=== PATIENT | male | born 1970 | race American Indian/Alaskan Native ===

== ENCOUNTER 2017-07-26 14:59 | Inpatient (IN) | payer MEDICAID, OTHER ==
[2017-07-26 16:21] LABS: BASO # 0.1 K/uL (0.0-0.2); BASO % 0.9 % (0.0-2.0); EOS # 0.1 K/uL (0.0-0.7); EOS % 1.2 % (0.0-4.0); HEMATOCRIT 41.4 % (35.0-51.0); LYMPH % 27.8 % (20.0-40.0); MEAN CELL VOLUME 90.9 fL (80.0-94.0); MEAN CORPUSCULAR HEMOGLOBIN 30.3 pg (27.0-31.0); MEAN CORPUSCULAR HGB CONC 33.3 g/dL (33.0-37.0); MEAN PLATELET VOLUME 7.7 fL (7.2-11.7); MONO # 0.5 K/uL (0.0-0.8); NRBC % 0.2 % (0.0-2.0); RED CELL DISTRIBUTION WIDTH 13.3 % (11.5-14.5)
[2017-07-26 16:34] LABS: ALB/GLOB RATIO 1.1 (1.0-2.1); ALCOHOL SERUM < 10 mg/dl (0-10); ALKALINE PHOSPHATASE 77 U/L (38-126); ALT/SGPT 31 U/L (21-72); AST/SGOT 25 U/L (17-59); BILIRUBIN,TOTAL 0.5 mg/dL (0.2-1.3); BLOOD UREA NITROGEN 11 mg/dL (9-20); CALCIUM 8.5 mg/dl (8.6-10.4); CARBON DIOXIDE 25 mmol/L (22-30); CHLORIDE 100 mmol/L (98-107); GFR AFRICAN-AMERICAN > 60; GLUCOSE,RANDOM 138 mg/dL (75-110); SODIUM 133 mmol/L (132-148); TOTAL PROTEIN 7.7 g/dL (6.3-8.3)
[2017-07-26 16:38] LABS: URINE BILIRUBIN NEGATIVE (NEGATIVE); URINE BLOOD NEGATIVE (NEGATIVE); URINE CALCIUM OXALATE CRYSTALS FEW /hpf (<OCC); URINE COLOR Amber (YELLOW); URINE GLUCOSE (UA) NORMAL (Normal); URINE KETONE NEGATIVE (NEGATIVE); URINE LEUKOCYTE ESTERASE TRACE Leu/uL (Negative); URINE PROTEIN 1+ mg/dL (NEGATIVE); WBC URINE 7 /hpf (0-5)
--- NOTE | 2017-07-26 16:56 | C.PDOC ---
History Of Present Illness 47-year-old male, presents to the emergency department requesting detox from Heroin. Patients last use was today, states he used seven bags. Denies any other complaints at this time. Time Seen by Provider: 07/26/17 15:27 Chief Complaint (Nursing): Substance Abuse History Per: Patient History/Exam Limitations: no limitations Current Symptoms Are (Timing): Still Present Past Medical History Reviewed: Historical Data, Nursing Documentation, Vital Signs Vital Signs: Last Vital Signs Temp 98.8 F 07/26/17 15:06 Pulse 67 07/26/17 15:06 Resp 20 07/26/17 15:06 BP 128/76 07/26/17 15:06 Pulse Ox 94 L 07/26/17 16:58 Family History: States: No Known Family Hx - Social History Hx Alcohol Use: Yes Hx Substance Use: Yes - Immunization History Hx Tetanus Toxoid Vaccination: No Hx Influenza Vaccination: No Hx Pneumococcal Vaccination: No Review Of Systems Except As Marked, All Systems Reviewed And Found Negative. Constitutional: Negative for: Fever Cardiovascular: Negative for: Chest Pain Respiratory: Negative for: Shortness of Breath Gastrointestinal: Negative for: Vomiting, Abdominal Pain Musculoskeletal: Negative for: Back Pain Neurological: Negative for: Weakness, Numbness, Headache, Dizziness Physical Exam - Physical Exam Appears: Non-toxic, No Acute Distress Skin: Warm, Dry, No Rash Head: Atraumatic, Normacephalic Eye(s): bilateral: Normal Inspection, PERRL Nose: Normal Oral Mucosa: Moist Lips: Normal Appearing Neck: Normal ROM, Supple Chest: Symmetrical, No Tenderness Cardiovascular: Rhythm Regular, No Friction Rub, No Murmur Respiratory: Normal Breath Sounds, No Accessory Muscle Use Gastrointestinal/Abdominal: Soft, No Tenderness Extremity: Normal ROM Neurological/Psych: Oriented x3, Normal Speech, Normal Motor ED Course And Treatment - Laboratory Results Result Diagrams: 07/26/17 16:17 07/26/17 16:17 O2 Sat by Pulse Oximetry: 94 Progress Note: Bloodwork and UA ordered/reviewed. Medical Decision Making Medical Decision Making: The patient is medically cleared for psych admission. Case was accepted by Dr. Sultana (psychiatrist oncall) Disposition - Disposition Disposition: HOSPITALIZED Disposition Time: 17:33 Condition: FAIR Forms: [facility] (Maltese) - POA Present On Arrival: None - Clinical Impression Clinical Impression: Opiate dependence - Scribe Statement The provider has reviewed the documentation as recorded by the Scribe (Tarun Bautista) All medical record entries made by the Scribe were at my direction and personally dictated by me. I have reviewed the chart and agree that the record accurately reflects my personal performance of the history, physical exam, medical decision making, and the department course for this patient. I have also personally directed, reviewed, and agree with the discharge instructions and disposition.
--- NOTE | 2017-07-26 19:00 | PCM.BM ---
Treatment Plan Problems - Problems identified on initial assessmt Potential for opiate withdrawal Date Initiated: 07/26/17 Time Initiated: 18:59 Assessment reference: NA Status: Active Priority: 1 Treatment assets and liabiliti Patient Assests: cooperative, ADL independent, negotiates basic needs, cognitively intact Patient Liabilities: substance abuse (opiates) - Milieu Protocol Maintain good personal hygiene: daily Encourage regular showers, daily Remind patient to perform daily oral care, daily Assist patient to perform ADL's Conduct patient checks and document Observation sheet: Q15 minutes Maintain personal safety: every shift Educate patient to report safety concerns to staff, every shift Monitor environment for contraband/sharps Medication safety: Monitor for expected outcome, potential side effects: every shift, Assess barriers to learning: every shift, Assess readiness for medication education: every shift
[2017-07-27 06:34] VITALS: RESP 18
--- NOTE | 2017-07-27 16:11 | PCM.PSYCH ---
Initial Psychiatric Evaluation - Initial Psychiatric Evaluation Type of Admission: Voluntary Legal Status: Capacity Chief Complaint (in patient's own words): I need treatment for heroin withdrawal symptoms History of Present Illness and Precipitating Events: This is a 47-year old male who was admitted to the hospital for opioid detox. Patient stated he started using heroin the age of 18. This is his first detox admission. He stated he is snorting 34-25 bags on the daily basis. He reported when he is not able to get heroin he had a withdrawal symptoms including nausea vomiting stomach cramps, headaches, nasal and eye conditions, hot and cold flashes, body aches. Currently patient reported the withdrawal symptoms of opioids. Patient reported he is also sniffing cocaine once in a while many years. Patient reported he drinks a 1.5 pints of Peggy daily. Last use was, night before coming to the hospital. He didn't do alcohol withdrawal symptoms. CAGE questionnaire was positive. He denied any seizures or auditory or visual hallucinations secondary to alcohol withdrawal symptoms. Patient denied any detox or rehabs in the past. Patient stated he gets cleaned up in the group home. Patient denied depressive, manic, perceptual disturbances. Patient has a legal history in the past. Current Medications: Active Medications Generic Name Dose Route Start Last Admin Trade Name Freq PRN Reason Stop Dose Admin Chlordiazepoxide 25 mg 07/26/17 18:33 Librium PO Q4H PRN Alcohol Withdrawal Clonidine HCl 0.1 mg 07/26/17 18:31 07/27/17 14:08 Catapres PO 0.1 mg Q8 PRN Administration COWS Score More or Equal to 5 Ibuprofen 400 mg 07/26/17 18:32 07/27/17 10:53 Motrin Tab PO 400 mg Q6H PRN Administration Pain, Mild (1-3) Loperamide HCl 2 mg 07/26/17 18:31 Imodium PO Q8 PRN Diarrhea Methadone HCl 25 mg 07/27/17 10:45 07/27/17 10:54 Methadone PO 08/01/17 10:44 25 mg DAILY KARISHMA Administration Taper Nicotine 1 patch 07/27/17 14:00 07/27/17 14:08 Nicoderm Cq TD 1 patch DAILY KARISHMA Administration Ondansetron HCl 4 mg 07/26/17 18:31 Zofran Tab PO Q8 PRN Nausea/Vomiting Past Psychiatric History - Past Psychiatric History Previous Treatment History: None History of Abuse: Denied History of ETOH/Drug Use: Please see HPI History of Family Illness: Denied Pertinent Medical Hx (Current Medical&Sleep Prob, Allergies): Allergies Allergy/AdvReac Type Severity Reaction Status Date / Time No Known Allergies Allergy Verified 07/26/17 15:10 RX: No Known Home Med 07/26/17 Denied Review of Systems - Review of Systems All systems: reviewed and no additional remarkable complaints except (HPI) - Constitutional Constitutional: Chills, Sweats, Malaise - EENT Eyes: Discharge Ears: UNREMARKABLE Nose/Mouth/Throat: Nasal Discharge - Cardiovascular Cardiovascular: UNREMARKABLE - Respiratory Respiratory: UNREMARKABLE - Gastrointestinal Gastrointestinal: Abdominal Pain - Genitourinary Genitourinary: UNREMARKABLE - Reproductive: Male Reproductive:Male: UNREMARKABLE - Musculoskeletal Musculoskeletal: Myalgias - Integumentary Integumentary: UNREMARKABLE - Neurological Neurological: Headaches, Tremor, Weakness - Psychiatric Psychiatric: As Per HPI - Endocrine Endocrine: UNREMARKABLE - Hematologic/Lymphatic Hematologic: UNREMARKABLE Mental Status Examination - Personal Presentation Personal Presentation: Looks stated age, Dressed appropriate to season Additional comments: He was superficially cooperative, positive nasal and eye congestion - Affect Affect: Constricted - Motor Activity Motor Activity: Psychomotor Agitation - Reliability in Providing Information Reliability in Providing Information: Good - Speech Speech: Organized - Mood Mood: Anxious - Formal Thought Process Formal Thought Process: No Impairment - Hallucinations/Delusions Hallucinations: Other (Denied) Delusions: Other (Denied) - Obsessions/Compulsions Obsessions: None Compulsions: None - Cognitive Functions Orientation: Person, Place, Situation, Time Sensorium: Alert Attention/Concentration: Attentive Abstract Thinking: [place] Estimate of Intelligence: Average Judgement: Intact, as evidence by: Good judgement, Intact, as evidence by: Insight regarding need for hospitalization Memory: Recent intact, as evidence by: Ability to recall events of the day, Remote intact, as evidenced by: Abilit to recall sig. life events, Remote intact , as evidenced by: Ability to recall historical events - Risk Risk: Withdrawal - Strength & Assets Inventory Strength & Assets Inventory: Intelligence, Family support, Skills, Life experience, Cooperative - Limitations Limitations: Other (Chronic drug use) DSM 5 DX - DSM 5 DSM 5 Diagnosis: Opioid abuse disorder, severe, dependence, withdrawal symptoms Alcohol use disorder, severe, dependence, withdrawal symptoms - Recommended/Plan of Treatment Treatment Recommendations and Plan of Treatment: Methadone detox Librium detox Gabapentin for augmentation As needed meds and vitamins Attend groups and activities [place] for abstinence and CBT for relapse prevention Support and psychoeducation Consider and encourage MAT~ Refer to after care 33 min Projected ELOS: 4-5 days Prognosis: Good Discharge Plan and Discharge Criteria: Please see manager social discharge plan - Smoking Cessation Smoking Cessation Initiated: Yes
[2017-07-28 10:27] VITALS: TEMP 98.5
[2017-07-28 13:22] VITALS: BP 126/82; PULSE 85; O2SAT 96
--- NOTE | 2017-07-28 13:36 | PCM.PYCHPN ---
Psychiatric Progress Note - Psychiatric Progress Note Patient seen today, length of contact: 15 minutes Patient Chief Complaint: "Methadone help me in withdrawal symptoms" Mental Status Examination - Cognitive Function Orientation: Person, Place, Situation, Time - Mood Mood: Anxious - Affect Affect: Constricted - Formal Thought Process Formal Thought Process: No Impairment - Homicidal Ideation Homicidal Ideation: No Goal/Treatment Plan - Goal/Treatment Plan Progress Toward Problem(s) and Goals/Treatment Plan: Methadone detox Librium detox Gabapentin for augmentation As needed meds and vitamins Attend groups and activities [place] for abstinence and CBT for relapse prevention Support and psychoeducation Consider and encourage MAT~ Refer to after care 33 min
--- NOTE | 2017-07-28 13:38 | PCM.PYCHDC ---
Mental Status Examination - Mental Status Examination Orientation: Person, Place, Situation, Time Memory: Intact Mood: Neutral Affect: Constricted Attention: WNL Concentration: WNL Association: WNL Fund of Knowledge: WNL Formal Thought Process: No Impairment Description of patient's judgement and insight: limited/limited Pt was calm and superficially cooperative Psychotic Thoughts and Behaviors: denied Suicidal Ideation: No Current Homicidal Ideation?: No Plan: no intent or plan and no access to fire arm Discharge Summary - Discharge Note Reason for Hospitalization: This is a 47-year old male who was admitted to the hospital for opioid detox. Patient stated he started using heroin the age of 18. This is his first detox admission. He stated he is snorting 34-25 bags on the daily basis. He reported when he is not able to get heroin he had a withdrawal symptoms including nausea vomiting stomach cramps, headaches, nasal and eye conditions, hot and cold flashes, body aches. Currently patient reported the withdrawal symptoms of opioids. Patient reported he is also sniffing cocaine once in a while many years. Patient reported he drinks a 1.5 pints of Peggy daily. Last use was, night before coming to the hospital. He didn't do alcohol withdrawal symptoms. CAGE questionnaire was positive. He denied any seizures or auditory or visual hallucinations secondary to alcohol withdrawal symptoms. Patient denied any detox or rehabs in the past. Patient stated he gets [facility] up in the [facility]. Patient denied depressive, manic, perceptual disturbances. Laboratory Data: tox positive for opioid and cocaine Consultations:: List each consultation separately and include: 1. Reason for request. 2. Findings. 3. Follow-up Consultations: none Summary of Hospital Course include:: 1. Description of specific treatment plan utilized for patients during their course of treatmen. 2. Summarize the time- course for resolution of acute symptoms and/or regressed behaviors. 3. Describe issues identified and worked on during hospitalization. 4. Describe medication utilized. 5. Describe medical problems identified and treated. 6. Reassessment of suicide risk Summary of Hospital Course: The pt was admitted and started on treatment with psychotherapy, support, psychoeducation and medications. [place] and CBT used. The pt attended some groups and activities, as well as milieu therapy. All the risks and benefits of medications were discussed and the patient understood and agreed. The pt requested earlier discharge because he had not celebrated Carolann for last years due to incarceration. This MD recommend to stay in the hospital and he can be discharged on 07/30/2017. So he can complete his detox. However, pt declined. He denied craving for drugs/etoh.~ Pt refuse to take his medication and demanded to be discharge. Pt was educated about the early relapse on drugs 2/2 to drugs use, and etoh. Etoh withdrawal symptoms including but not limited to seizures, AH, VH, DT and was discussed with the pt. Pt was also educated the different consequences due to noncompliance issues as well as not completing the detox treatment. Pt verbalized understanding and he stated that he will return to nearest ER or call 911 in case of withdrawal symptoms. no prescription was given. - Diagnosis (1) Opioid use disorder, severe, dependence Current Visit: Yes Status: Acute (2) Opioid withdrawal Current Visit: Yes Status: Acute (3) Alcohol use disorder, severe, dependence Current Visit: Yes Status: Acute (4) Alcohol withdrawal Current Visit: Yes Status: Acute - Final Diagnosis (DSM 5) Condition upon Discharge: FAIR Disposition: AGAINST MEDICAL ADVICE Follow-up Treatment Plan: Follow after care plan as discussed. Use relapse prevention copying skills Return to ER or call 911 if suicidal, homicidal or symptoms relapse. Stay away from stress, alcohol and drugs. See primary doctor once a year. Time spend 25 minutes - Smoking Cessation Smoking Cessation Medication prescribed: Yes - Antipsychotic Medications Pt discharged on 2 or more routine antipsychotic medications: No
== END 2017-07-28 13:45 | disposition left against medical advice (07) | DRG 743 ==
LOC: C.ER 14:59 → C.7D 17:37
PROVIDERS: ADMIT Psychiatry & Neurology Psychiatry; ATTEND Psychiatry & Neurology Psychiatry
PROC: HZ2ZZZZ Detoxification Services for Substance Abuse Treatment (ICD-10-PCS; principal; 2017-07-26)
DX: F11.23 Opioid dependence with withdrawal (principal); F14.20 Cocaine dependence, uncomplicated; F10.239 Alcohol dependence with withdrawal, unspecified

== ENCOUNTER 2017-09-15 17:56 | Inpatient (IN) | payer MEDICAID, OTHER ==
[2017-09-15 18:03] VITALS: BMI 25.1
[2017-09-15 20:02] LABS: BASO % 0.7 % (0.0-2.0); EOS # 0.1 K/uL (0.0-0.7); EOS % 2.7 % (0.0-4.0); HEMOGLOBIN 14.5 g/dL (12.0-18.0); LYMPH # 2.5 K/uL (1.0-4.3); LYMPH % 46.1 % (20.0-40.0); MEAN CELL VOLUME 90.9 fL (80.0-94.0); MEAN CORPUSCULAR HEMOGLOBIN 31.2 pg (27.0-31.0); MEAN CORPUSCULAR HGB CONC 34.4 g/dL (33.0-37.0); MEAN PLATELET VOLUME 8.2 fL (7.2-11.7); MONO # 0.5 K/uL (0.0-0.8); MONO % 9.6 % (0.0-10.0); NEUT # 2.2 K/uL (1.8-7.0); NEUT % 40.9 % (50.0-75.0); NRBC % 0.1 % (0.0-2.0); RBC 4.64 Mil/uL (4.40-5.90); RED CELL DISTRIBUTION WIDTH 13.3 % (11.5-14.5); WHITE BLOOD COUNT 5.3 K/uL (4.8-10.8)
[2017-09-15 20:05] LABS: SQUAMOUS EPITHIAL < 1 /hpf (0-5); URINE BACTERIA RARE (<OCC); URINE BILIRUBIN NEGATIVE (NEGATIVE); URINE CLARITY Hazy (Clear); URINE COLOR Yellow (YELLOW); URINE GLUCOSE (UA) NORMAL (Normal); URINE LEUKOCYTE ESTERASE NEG Leu/uL (Negative); URINE NITRATE NEGATIVE (NEGATIVE); URINE PROTEIN 1+ mg/dL (NEGATIVE)
[2017-09-15 20:11] LABS: URINE BLOOD 1+ (NEGATIVE)
[2017-09-15 20:12] LABS: ALB/GLOB RATIO 1.2 (1.0-2.1); ALBUMIN 4.2 g/dL (3.5-5.0); ALT/SGPT 28 U/L (21-72); AST/SGOT 30 U/L (17-59); BLOOD UREA NITROGEN 13 mg/dL (9-20); CALCIUM 9.6 mg/dl (8.6-10.4); GFR AFRICAN-AMERICAN > 60; GFR NON-AFRICAN AMERICAN > 60
[2017-09-15 20:21] LABS: BARBITURATES, UR NEGATIVE (NEGATIVE); BENZODIAZEPINES, UR NEGATIVE (NEGATIVE); PHENCYCLIDINE, UR NEGATIVE (NEGATIVE)
[2017-09-15 20:43] LABS: OPIATES, UR POSITIVE (NEGATIVE)
--- NOTE | 2017-09-15 21:32 | PCM.BM ---
Treatment Plan Problems - Problems identified on initial assessmt Potential for opiate withdrawal Date Initiated: 09/15/17 Time Initiated: 21:32 Assessment reference: NA Status: Active Priority: 1 Treatment assets and liabiliti Patient Assests: cooperative, ADL independent, negotiates basic needs, cognitively intact Patient Liabilities: substance abuse (opiates,cocaine) - Milieu Protocol Maintain good personal hygiene: daily Encourage regular showers, daily Remind patient to perform daily oral care, daily Assist patient to perform ADL's Conduct patient checks and document Observation sheet: Q15 minutes Maintain personal safety: every shift Educate patient to report safety concerns to staff, every shift Monitor environment for contraband/sharps Medication safety: Monitor for expected outcome, potential side effects: every shift, Assess barriers to learning: every shift, Assess readiness for medication education: every shift
--- NOTE | 2017-09-16 00:55 | C.PDOC ---
History Of Present Illness 47 year old male presents to the ED requesting detox for cocaine and opioids use. Patient states he used both earlier today, patient states he sniffs both drugs. Patient denies fever, chill, CP, SOB. Chief Complaint (Nursing): Substance Abuse History Per: Patient History/Exam Limitations: no limitations Onset/Duration Of Symptoms: Hrs Current Symptoms Are (Timing): Still Present Suicide/Self Injury Attempted (Context): None Modifying Factor(s): Cocaine, Other Associated Symptoms: denies: Depression, Suicidal Thoughts, Suicidal Plan Recent travel outside of the [place]: No Additional History Per: Patient Past Medical History Reviewed: Historical Data, Nursing Documentation, Vital Signs Vital Signs: Last Vital Signs Temp 98 F 09/15/17 22:14 Pulse 69 09/15/17 22:14 Resp 20 09/15/17 22:14 BP 139/65 09/15/17 22:14 Pulse Ox 96 09/16/17 00:55 - Medical History PMH: No Chronic Diseases Denies: Diabetes, Hepatitis, HIV, HTN, Seizures, Sexually Transmitted Disease Surgical History: No Surg Hx - [facility] DETOXIFICATION SERVICES FOR SUBSTANCE ABUSE TREATMENT (07/26/17) Family History: States: No Known Family Hx - Social History Hx Alcohol Use: No Hx Substance Use: Yes - Immunization History Hx Tetanus Toxoid Vaccination: Yes Hx Influenza Vaccination: No Hx Pneumococcal Vaccination: No Review Of Systems Constitutional: Negative for: Fever, Chills Cardiovascular: Negative for: Chest Pain, Palpitations Respiratory: Negative for: Cough, Shortness of Breath Gastrointestinal: Negative for: Nausea, Vomiting, Abdominal Pain Skin: Negative for: Rash Neurological: Negative for: Weakness, Numbness Psych: Negative for: Depression, Suicidal ideation Physical Exam - Physical Exam Appears: Non-toxic, No Acute Distress Skin: Normal Color, Warm, Dry Head: Atraumatic, Normacephalic Eye(s): bilateral: Normal Inspection Nose: No Discharge, No Deformity Oral Mucosa: Moist Neck: Normal ROM, Supple Chest: Symmetrical Cardiovascular: Rhythm Regular, No Murmur Respiratory: Normal Breath Sounds, No Rales, No Rhonchi, No Wheezing Gastrointestinal/Abdominal: Soft, No Tenderness, No Guarding, No Rebound Extremity: Normal ROM, No Tenderness, No Swelling Neurological/Psych: Oriented x3, Normal Speech, Normal Cognition Gait: Steady ED Course And Treatment - Laboratory Results Result Diagrams: 09/15/17 19:55 09/15/17 19:55 O2 Sat by Pulse Oximetry: 96 (On Ra) Pulse Ox Interpretation: Normal Medical Decision Making Medical Decision Making: Impression: cocaine opiood detox Plan: * Labs * Ua * Crisi eval Disposition - Disposition Disposition: HOSPITALIZED Disposition Time: 21:00 Condition: GOOD - Clinical Impression Clinical Impression: Drug abuse, Drug dependence - Scribe Statement The provider has reviewed the documentation as recorded by the Scribe Anthony Morales All medical record entries made by the Scribe were at my direction and personally dictated by me. I have reviewed the chart and agree that the record accurately reflects my personal performance of the history, physical exam, medical decision making, and the department course for this patient. I have also personally directed, reviewed, and agree with the discharge instructions and disposition.
--- NOTE | 2017-09-16 23:09 | PCM.PSYCH ---
Initial Psychiatric Evaluation - Initial Psychiatric Evaluation Type of Admission: Voluntary Legal Status: Capacity Chief Complaint (in patient's own words): "I want heroin detox treatment" History of Present Illness and Precipitating Events: Pt is a 47 year old male admitted for heroin detox. Pt states he last used 1 bag intranasally this morning, with average daily use of 15 bags daily "on and off x20 years." Pt left AMA from Detox unit in 06/2017. Pt states he also uses cocaine daily, last use this morning when he sniffed 1 gram, but usually used 2 grams daily. Pt states that yesterday he used 1 Suboxone 8mg strip, which he purchased illicitly to alleviate his withdrawal symptoms. Pt denies using regularly. Pt reported active w/d symptoms present. Pt denied depressive/manic symptoms. Pt denied perceptual disturbances Pt denied SI, HI, intent or plan. Current Medications: Active Medications Generic Name Dose Route Start Last Admin Trade Name Freq PRN Reason Stop Dose Admin Clonidine HCl 0.1 mg 09/15/17 22:00 Catapres PO Q8 PRN COWS Score More or Equal to 5 Dicyclomine HCl 10 mg 09/15/17 22:00 Bentyl PO Q6 PRN Muscle spasm Hydroxyzine HCl 25 mg 09/15/17 22:00 Atarax PO Q6 PRN Anxiety Ibuprofen 600 mg 09/15/17 22:02 Motrin Tab PO TID PRN Pain, moderate (4-7) Loperamide HCl 2 mg 09/15/17 22:00 Imodium PO Q8 PRN Diarrhea Ondansetron HCl 4 mg 09/15/17 22:00 Zofran Tab PO Q8 PRN Nausea/Vomiting Trazodone HCl 50 mg 09/15/17 22:02 09/15/17 22:14 Desyrel PO 50 mg HS PRN Administration Insomnia Past Psychiatric History - Past Psychiatric History Previous Treatment History: Inpatient At [facility]: [facility] Duration: 2 days 07/26/2017 Nature of Treatment: METHADONE DETOX Explanation of prior treatment: DETOX TREATMENT History of Abuse: DENIED History of ETOH/Drug Use: PLEASE SEE HPI Pertinent Medical Hx (Current Medical&Sleep Prob, Allergies): Allergies Allergy/AdvReac Type Severity Reaction Status Date / Time No Known Allergies Allergy Verified 09/15/17 18:02 No Known Home Med 07/26/17 DENIED Review of Systems - Review of Systems All systems: reviewed and no additional remarkable complaints except (HPI) - Constitutional Constitutional: Chills, Malaise - EENT Eyes: As Per HPI Ears: UNREMARKABLE Nose/Mouth/Throat: Nasal Discharge - Cardiovascular Cardiovascular: UNREMARKABLE - Respiratory Respiratory: UNREMARKABLE - Gastrointestinal Gastrointestinal: Nausea - Genitourinary Genitourinary: As Per HPI - Reproductive: Male Reproductive:Male: UNREMARKABLE - Musculoskeletal Musculoskeletal: Myalgias - Integumentary Integumentary: UNREMARKABLE - Neurological Neurological: UNREMARKABLE - Psychiatric Psychiatric: As Per HPI - Endocrine Endocrine: UNREMARKABLE - Hematologic/Lymphatic Hematologic: UNREMARKABLE Mental Status Examination - Personal Presentation Personal Presentation: Looks stated age, Dressed appropriate to season Additional comments: he appeared calm and cooperative - Affect Affect: Constricted - Motor Activity Motor Activity: Calm - Reliability in Providing Information Reliability in Providing Information: Good - Speech Speech: Organized - Mood Mood: Depressed, Anxious - Formal Thought Process Formal Thought Process: No Impairment - Hallucinations/Delusions Hallucinations: Other (denied) Delusions: Other (denied) - Obsessions/Compulsions Obsessions: None Compulsions: None - Cognitive Functions Orientation: Person, Place, Situation, Time Sensorium: Alert Attention/Concentration: Attentive Abstract Thinking: [place] Estimate of Intelligence: Average Judgement: Intact, as evidence by: Good judgement, Intact, as evidence by: Insight regarding need for hospitalization Memory: Recent intact, as evidence by: Ability to recall events of the day - Risk Risk: Withdrawal - Strength & Assets Inventory Strength & Assets Inventory: Family support, Education, Skills, Cooperative - Limitations Limitations: Other (chronic illicit drugs) DSM 5 DX - Recommended/Plan of Treatment Treatment Recommendations and Plan of Treatment: Methadone detox Gabapentin for augmentation As needed meds and vitamins Attend groups and activities [place] for abstinence and CBT for relapse prevention Support and psychoeducation Consider and encourage MAT~ Refer to after care time spend 30 minutes Projected ELOS: 5 days Prognosis: good Discharge Plan and Discharge Criteria: refer to after care - Smoking Cessation Smoking Cessation Initiated: Yes
--- NOTE | 2017-09-17 18:23 | PCM.PYCHPN ---
Psychiatric Progress Note - Psychiatric Progress Note Patient seen today, length of contact: 15 minutes Patient Chief Complaint: "I'm not feeling good" Medical Problems: Pt was seen and evaluated. Chart reviewed. Pt reported he is not feeling good. He has nausea, vomiting, stomach cramps and extra methadone for his withdrawal symptoms. He needs more time to stabilize. He denied SI, HI, intent or plan. He reported he slept okay last night. DSM 5 Symptoms Update: Opioid dependence, severe, withdrawal symptoms. Medication Change: Yes Medical Record Reviewed: Yes Mental Status Examination - Cognitive Function Orientation: Person, Place, Situation, Time Memory: Intact Attention: WNL Concentration: Poor Association: WNL Fund of Knowledge: WNL Decription of patient's judgement and insights: limited/ fair - Mood Mood: Depressed, Anxious - Affect Affect: Constricted - Speech Speech: Appropriate - Formal Thought Process Formal Thought Process: No Impairment Psychotic Thoughts and Behaviors: denied - Suicidal Ideation Suicidal Ideation: No Plan: denied - Homicidal Ideation Homicidal Ideation: No Plan: denied Goal/Treatment Plan - Goal/Treatment Plan Need for Continued Stay: Discharge may exacerbated symptoms Progress Toward Problem(s) and Goals/Treatment Plan: Methadone detox Gabapentin for augmentation As needed meds and vitamins Attend groups and activities [place] for abstinence and CBT for relapse prevention Support and psychoeducation Estimated Date of D/C: 09/20/17 - Smoking Cessation Smoking Cessation Initiated: Yes
--- NOTE | 2017-09-18 10:54 | PCM.PYCHPN ---
Psychiatric Progress Note - Psychiatric Progress Note Patient seen today, length of contact: 15 minutes Patient Chief Complaint: I am still withdrawing.' Problems Identified/Issues Discussed: Patient seen and evaluated, chart reviewed and discussed with the nurse. Patient still reports withdrawal symptoms including nausea, headaches, cramps and sweating. He reports irritable mood but denies any feelings of hopelessness and helplessness. He denies any SI/HI/AVH. He is taking medication and denies any side effects. He needs more time for stabilization. Supportive therapy and psychoeducation were given. Medication Change: Yes (methadone taper) Medical Record Reviewed: Yes Mental Status Examination - Cognitive Function Orientation: Person, Place, Situation, Time Memory: Intact Attention: WNL Concentration: Poor Association: WNL Fund of Knowledge: WNL - Mood Mood: Depressed, Anxious - Affect Affect: Constricted - Speech Speech: Appropriate - Formal Thought Process Formal Thought Process: No Impairment - Suicidal Ideation Suicidal Ideation: No - Homicidal Ideation Homicidal Ideation: No Goal/Treatment Plan - Goal/Treatment Plan Need for Continued Stay: Discharge may exacerbated symptoms Progress Toward Problem(s) and Goals/Treatment Plan: Methadone detox Gabapentin for augmentation As needed meds and vitamins Attend groups and activities [place] for abstinence and CBT for relapse prevention Support and psychoeducation Estimated Date of D/C: 09/20/17
--- NOTE | 2017-09-19 08:49 | PCM.PYCHDC ---
Mental Status Examination - Mental Status Examination Orientation: Person Discharge Summary - Discharge Note Psychiatric History (includes Medical, Family, Personal Hx): METHADONE DETOX Consultations:: List each consultation separately and include: 1. Reason for request. 2. Findings. 3. Follow-up Summary of Hospital Course include:: 1. Description of specific treatment plan utilized for patients during their course of treatmen. 2. Summarize the time- course for resolution of acute symptoms and/or regressed behaviors. 3. Describe issues identified and worked on during hospitalization. 4. Describe medication utilized. 5. Describe medical problems identified and treated. 6. Reassessment of suicide risk - Final Diagnosis (DSM 5) Condition upon Discharge: GOOD Disposition: HOME/ ROUTINE Prescriptions/Medication Reconciliation: hydrOXYzine HCl [Atarax] 25 mg PO BID PRN #40 tab PRN Reason: Anxiety traZODone [Desyrel] 50 mg PO HS PRN #30 tab PRN Reason: Insomnia
[2017-09-19 09:26] VITALS: BP 114/76; PULSE 103; RESP 18; TEMP 97.8; O2SAT 97
== END 2017-09-19 09:30 | disposition home or self-care (01) | DRG 745 ==
LOC: C.ER 17:56 → C.7D 21:19
PROVIDERS: ADMIT Psychiatry & Neurology Psychiatry; ATTEND Psychiatry & Neurology Psychiatry
PROC: HZ2ZZZZ Detoxification Services for Substance Abuse Treatment (ICD-10-PCS; principal; 2017-09-15)
PROC: HZ59ZZZ Individual Psychotherapy for Substance Abuse Treatment, Supportive (ICD-10-PCS; 2017-09-15)
PROC: HZ46ZZZ Group Counseling for Substance Abuse Treatment, Psychoeducation (ICD-10-PCS; 2017-09-15)
DX: F11.23 Opioid dependence with withdrawal (principal); F14.10 Cocaine abuse, uncomplicated